=== PATIENT | female | born 1995 | race African-American/Black ===

== ENCOUNTER 2019-09-02 13:09 | Emergency (ER) | payer OTHER ==
[~2019-09-02] VITALS: Ht 162.6 cm; Wt 74.5 kg
[2019-09-02 13:11] VITALS: BP 136/83
[2019-09-02] MEDS ORDERED: METF-445 PO (13:17)
[2019-09-02] MEDS ORDERED: METF-960 PO (13:20)
[2019-09-02 13:29] LABS: GLUCOSE,POINT OF CARE 103 MG/DL (70-110)
== END 2019-09-02 15:58 | disposition home or self-care (01) ==
LOC: EMS 13:11
DX: A60.00 Herpesviral infection of urogenital system, unspecified (principal); Z88.0 Allergy status to penicillin; Z91.040 Latex allergy status; Z79.84 Long term (current) use of oral hypoglycemic drugs